=== PATIENT | female | born 1995 | race Caucasian/White ===

== ENCOUNTER 2021-10-16 12:20 | Emergency (ER) | payer BC ==
[2021-10-16 12:47] VITALS: BP 110/80; PULSE 87; RESP 16; TEMP 98.1
--- NOTE | 2021-10-16 13:37 | XR ---
EXAMINATION TYPE: XR ankle complete LT DATE OF EXAM: 10/16/2021 COMPARISON: None HISTORY: Injury TECHNIQUE: Three-view left ankle FINDINGS: There is a comminuted fracture of the distal diaphyseal fibula. There is lateral subluxation of the talus in relation to the distal fibula. There is widening of the medial ankle mortise space. On this image there is a suggestion of a posterior tibial fracture. This is difficult to confirm. Consider follow-up. IMPRESSION: 1. Comminuted fracture distal diaphyseal fibula. 2. Subluxation of the talus lateral in relation to the tibia. 3. Possible posterior tibial fracture.
--- NOTE | 2021-10-16 13:43 | ED ---
Lower Extremity Injury HPI - General Chief Complaint: Extremity Injury, Lower Stated Complaint: Lt Ankle Injury Time Seen by Provider: 10/16/21 12:21 Source: patient, RN notes reviewed Mode of arrival: wheelchair Limitations: no limitations - History of Present Illness Initial Comments: 25-year-old female presents from for left ankle injury. Patient states she stepped out of the vehicle into a pothole rolled her ankle. Snap. Patient complains of ankle pain, lateral leg pain. No paresthesias no discoloration. Patient states that prior fractures to see orthopedics associate. - Related Data Previous Rx's Medication Instructions Recorded Ibuprofen [Motrin] 600 mg PO Q6HR PRN #40 day 05/19/16 Allergies Allergy/AdvReac Type Severity Reaction Status Date / Time No Known Allergies Allergy Verified 10/16/21 12:45 Review of Systems ROS Statement: Those systems with pertinent positive or pertinent negative responses have been documented in the HPI. ROS Other: All systems not noted in ROS Statement are negative. Past Medical History Past Medical History: No Reported History History of Any Multi-Drug Resistant Organisms: None Reported Additional Past Surgical History / Comment(s): wisdom teeth 2015 Past Psychological History: No Psychological Hx Reported Smoking Status: Vaper Past Alcohol Use History: None Reported Past Drug Use History: None Reported General Exam Limitations: no limitations General appearance: alert, in no apparent distress Head exam: Present: atraumatic, normocephalic, normal inspection Eye exam: Present: normal appearance, PERRL, EOMI. Absent: scleral icterus, conjunctival injection, periorbital swelling Respiratory exam: Present: normal lung sounds bilaterally. Absent: respiratory distress, wheezes, rales, rhonchi, stridor Cardiovascular Exam: Present: regular rate, normal rhythm, normal heart sounds. Absent: systolic murmur, diastolic murmur, rubs, gallop, clicks Extremities exam: Present: other (Left leg neurovascular intact there is moderate swelling of the ankle, tenderness diffusely of ankle and lateral fibular region) Course Vital Signs 10/16/21 12:45 Temperature 98.1 F Pulse Rate 87 Respiratory 16 Rate Blood Pressure 110/80 O2 Sat by Pulse 99 Oximetry Procedures - Orthopedic Splinting/Casting Injury #1 Side: left Lower Extremity Injury Location: short leg, ankle Lower Extremity Immobilizer: posterior splint, synthetic pre-padded splint Other Orthopedic Equipment: crutches Medical Decision Making - Medical Decision Making Patient does not require pain meds upon arrival emergency department. She'll be discharged with medications but does not request any pain meds X-ray shows evidence of distal fibular fracture, ankle mortise disruption, possible posterior tibial fracture x-ray does show possible subluxation she was placed in 90 splint she'll follow-up with orthopedics return parameters discussed she's neurovascular intact. Disposition Clinical Impression: Closed fracture of left distal fibula, Acute disruption of syndesmosis of ankle joint Disposition: HOME SELF-CARE Condition: Stable Instructions (If sedation given, give patient instructions): Leg Fracture (ED) Additional Instructions: Please return to the Emergency Department if symptoms worsen or any other concerns. Is patient prescribed a controlled substance at d/c from ED?: No Referrals: Abhijit Gary DO [Primary Care Provider] - 1-2 days Alejandro Tariq MD [Medical Doctor] - 1-2 days Time of Disposition: 13:42
[2021-10-16] MEDS ORDERED: ACET/COD 300 MG/30 MG STARTER PACK 6 TAB BTL PO STA (13:46)
== END 2021-10-16 14:10 | disposition home or self-care (01) ==
LOC: EC 12:20
DX: S82.832A Other fracture of upper and lower end of left fibula, initial encounter for closed fracture (principal); F17.290 Nicotine dependence, other tobacco product, uncomplicated; X50.1XXA Overexertion from prolonged static or awkward postures, initial encounter
CPT/HCPCS: 29515; 99283

== ENCOUNTER 2021-10-27 11:21 | Day surgery (SDC) | payer BC ==
[2021-10-26 09:39] VITALS: BMI 28.8
[~2021-10-27 11:21] MED LIST: DEXAMETHASONE SOD PHOSPHATE 4 MG/ML 1 ML VIAL IV ONE; HYDROmorphone 0.5 MG/0.5 ML SYRINGE IVP PRN; LACTATED RINGERS 1,000 ML IV SCH; LIDOCAINE 1% (10MG/ML) FOR IV START INTRADERMA PRN; MIDAZOLAM 2 MG/2 ML VIAL IV PRN; ONDANSETRON 4 MG/2 ML VIAL IVP ONE
[2021-10-27] MEDS ORDERED: LIDOCAINE 1% (10MG/ML) FOR IV START SQ ONE (12:11)
[2021-10-27] MEDS ORDERED: SCOPOLAMINE 1 MG/72 HR PATCH TRANSDERM ONE (12:18)
[2021-10-27] MEDS ORDERED: MIDAZOLAM 2 MG/2 ML VIAL IV ONE (12:25)
[2021-10-27] MEDS ORDERED: ROPIVACAINE 5 MG/ML 30 ML VIAL ONE (13:09)
[2021-10-27] MEDS ORDERED: DEXAMETHASONE SOD PHOSPHATE 4 MG/ML 1 ML VIAL ONE (13:09)
[2021-10-27] MEDS ORDERED: LIDOCAINE 2% INJ 20 MG/ML (2 ML VIAL) ONE (13:09)
[2021-10-27] MEDS ORDERED: HYDROmorphone (PF) 1 MG/ML ONE (13:09)
[2021-10-27] MEDS ORDERED: MIDAZOLAM 2 MG/2 ML VIAL ONE (13:09)
[2021-10-27] MEDS ORDERED: PROPOFOL 10 MG/ML 20 ML VIAL IV ONE (13:09)
[2021-10-27] MEDS ORDERED: ONDANSETRON 4 MG/2 ML VIAL ONE (13:09)
[2021-10-27] MEDS ORDERED: fentaNYL (PF) 50 MCG/ML 2 ML AMP ONE (13:09)
--- NOTE | 2021-10-27 13:39 | P.ANPRN ---
Procedure Note - Anesthesia - Nerve Block Performed Left Popliteal Single Time Out Performed: Yes Date of Procedure: 10/27/21 Procedure Start Time: 12:24 Procedure Stop Time: 12:34 Location of Patient: PreOp Indication: Acute Post-Operative Pain, Requested by Surgeon Sedation Type: Sedate with meaningful contact maintained Preparation: Sterile Prep, Sterile Dressing Position: Right Lateral Catheter: None Needle Types: Pajunk Needle Gauge: 20 Ultrasound used to visualize needle placement: Yes Ultrasound used to observe medication spread: Yes Injectate: 0.5% Ropivacaine (see comment for volume) (30 ml + decadron 4 mg) Blood Aspirated: No Pain Paresthesia on Injection Noted: No Resistance on Injection: Normal Image Stored and Saved: Yes Events: Uneventful and Well Tolerated
[2021-10-27] MEDS ORDERED: LACTATED RINGERS 1,000 ML IV ONE (15:29)
[2021-10-27 15:45] VITALS: TEMP 97.6
--- NOTE | 2021-10-27 15:51 | P.OP ---
Date of Procedure: 10/27/21 Preoperative Diagnosis: 1. Displaced spiral, oblique, comminuted fibular shaft fracture 2. Ruptured syndesmosis left ankle 3. Ruptured deltoid ligament left ankle Postoperative Diagnosis: 1. Same 2. Same 3. Same Procedure(s) Performed: 1. Open reduction with internal fixation fibular shaft fracture left leg 2. Open repair syndesmosis left ankle 3. Open repair deltoid ligament left ankle Implants: Arthrex 10 hole one third tubular plate with 3.5 mm locking and nonlocking screws Arthrex internal brace Arthrex fiber Kenrick anchor To Arthrex 4.75 mm swivel lock anchor Anesthesia: PHAM Surgeon: Alessandro Choi Estimated Blood Loss (ml): 30 Pathology: none sent Condition: stable Disposition: PACU Description of Procedure: Prior to the patient being brought to the operating room, anesthesia administered a nerve block and left lower extremity. Then the patient was brought into the operating room placed on table supine position. Timeout was taken to confirm correct patient identifiers, correct site of surgery, and correct procedure. When all staff in the room were in agreement with the timeout, the patient was induced and placed under general anesthesia. A well- padded tourniquet was placed on the left thigh and a bump underneath the left hip to internally rotate the left leg. The left leg was then prepped and draped in the usual manner. The leg was exsanguinated and the tourniquet inflated to 250 mmHg. Attention was directed over the medial aspect of the ankle were curved incision was made just anterior to medial malleolus. Incision was deepened down bluntly through the subcutaneous layer down to level of the deltoid ligament. The deltoid ligament was completely ruptured from the midline to the anterior portion of the medial malleolus and the rest of the ligament was incised off the medial malleolus. A Mg was used to remove the cortical bone to facilitate reattachment upon repair. 2 Arthrex fiber Kenrick anchors were placed into the medial malleolus. Then the deltoid ligament which was incarcerated in the medial gutter was mobilized was brought out of the gutter and over the medial malleolus. The suture on the fiber [place] anchors was then used to capture the deltoid ligament. A drill hole for 4.75 mm swivel lock anchor was then made through the medial tibia proximal to the ankle joint. With the ankle held in inversion and all strands of suture under tension, the suture was fed through the 4.75 anchor which was then placed into the drill hole in the tibia and advanced locking the suture in place. Once that was completed there was no further instability of the medial ankle joint complex. An fluoroscopy showed that the ankle mortise was intact. The wound is irrigated thoroughly. Subcutaneous closure was done for Monocryl and skin closure done with marcela. Attention was then directed over the lateral ankle where fluoroscopy was used to locate the proximal fibular fracture. Then a long incision was made along this area to expose lateral malleolar fracture but also allow for placement distally of the plate as well as a syndesmotic repair. Incision was deepened down to the subcutaneous layer careful to identify, avoid, and retract any neurovascular structures and cauterize any bleeding vessels. The superficial fascia over the peroneal muscle bellies was incised and the muscle bellies were reflected from the prosthesis attachments on the fibular shaft. The fracture was completely exposed all the soft tissue interposed at the fracture was removed. There was shortening and comminution of the fracture. The pins for a bone distractor were then placed on either side of the fracture and then the distractor was placed over the pins and opened so that the length of the restored of the fibular fracture. Once it was aligned a bone clamp was them in place hold the fracture reduced. Then a 10 hole one third tubular plate was placed on the lateral side of the fibula and then held in place with threaded olive wires. Fluoroscopy was used both on AP, oblique, and lateral views to confirm the proper placement of the plate as well as reduction of the fracture and restore length of the fibula. Once we were satisfied with position of the fracture, 3.5 nonlocking screws were placed one distal and one proximal to the fracture through the plate. Then 3.5 locking screws were placed one distal one proximal through the plate into the fibula. Once that was completed the bone clamp and distractor were removed. Fluoroscopy the was used to check the alignment and fixation both were found to be adequate. A third locking screw was then placed on the proximal aspect of the fibula through the plate. Attention then directed over the anterior lateral ankle at the syndesmosis. Soft tissue dissection was performed to expose the anterior surface of the syndesmosis. There was interposing soft tissue and the syndesmosis which was evacuated with back elevator. Then a large periarticular clamp was used to reduce the syndesmosis. Fluoroscopy showed that the syndesmosis was well seated into the groove in the tibia and ankle joint was opened symmetrical. Utilizing the last distal hole the plate, a drill hole was made from lateral to medial with anterior angulation for the placement of the tight rope anchor. Once the medial cortex of the tibia was breached the drill bit was removed and then the tight rope with the community engagement manager was placed into the drill hole and advanced until the medial button was clear of the medial cortex of the tibia. The button was then deployed and the manipulated so it laid flat on the lateral on the cortex of the tibia. Then the community engagement manager was removed and then with the ankle maximally dorsiflexed the suture in the tight rope was then tightened until lateral button was firmly seated against the plate on the fibula. Once completed stress views of the ankle were done under live fluoroscopy, which showed no evidence of gapping at the medial gutter or evidence of instability at the syndesmosis. The lateral wound was thoroughly irrigated. Fascia over the peroneal tendons was closed with 2-0 Vicryl. Subcu closure done with 3-0 Monocryl. And skin closure done with marcela. An Arthrex jumpstart dressing was placed over both incisions and a dry bulky dressing applied the left ankle. The tourniquet was released and capillary refill return to all digits on the left foot. The patient was then placed in a well-padded, well molded plaster posterior mold/sugar tong splint. Ankle was held in neutral position as it dried. Once dried anesthesia was reversed and the patient was taken recovery with vital signs stable.
[2021-10-27 16:43] VITALS: BP 99/77; PULSE 99; RESP 17
--- NOTE | 2021-10-28 09:24 | FL ---
Fluoroscopy History: LEFT ANKLE FX LEFT ANKLE FX. 54 SEC FL TIME. 2 IMAGES SENT TO PACS
--- NOTE | 2021-10-28 09:33 | XR ---
Fluoroscopy INDICATION: Pain FINDINGS: Fluoroscopy time: 54 seconds. Images obtained: 2. IMPRESSIONS: 1. Documentation of fluoroscopy.
== END 2021-10-27 17:00 | disposition home or self-care (01) ==
LOC: OR 11:21
PROVIDERS: ATTEND Podiatrist
DX: S82.452A Displaced comminuted fracture of shaft of left fibula, initial encounter for closed fracture (principal); S93.432A Sprain of tibiofibular ligament of left ankle, initial encounter; S93.422A Sprain of deltoid ligament of left ankle, initial encounter; W01.0XXA Fall on same level from slipping, tripping and stumbling without subsequent striking against object, initial encounter; Z79.1 Long term (current) use of non-steroidal anti-inflammatories (NSAID); Z98.890 Other specified postprocedural states
CPT/HCPCS: 81025; 64445; 76942; 73610; 27784; 27829; 27695; C1713 ×4; J2250; J1100; J0690; J2405; J3010; J1170 ×2; J2795; J2704; J2001